=== PATIENT | male | born 1965 | race Caucasian/White ===

== ENCOUNTER 2017-11-11 20:49 | Emergency (ER) | payer OTHER ==
[2017-11-11] MEDS ORDERED: LIDOCAINE 1% MDV 20ML VIAL As Ordered (22:55)
[2017-11-11] MEDS: ADACEL/BOOSTRIX VACCINE (DIPHTH/PERTUSS/ACELL/TETANUS)0.5ML SYR (90715) IM (23:00)
[2017-11-11] MEDS: LIDOCAINE 1% MDV 20ML VIAL IM (23:00)
== END 2017-11-11 23:37 | disposition home or self-care (01) ==
LOC: M ED 20:49
DX: S61.217A Laceration without foreign body of left little finger without damage to nail, initial encounter (principal); W31.89XA Contact with other specified machinery, initial encounter; Y92.099 Unspecified place in other non-institutional residence as the place of occurrence of the external cause; Y93.9 Activity, unspecified; Y99.9 Unspecified external cause status; Z79.899 Other long term (current) drug therapy
CPT/HCPCS: 90715

== ENCOUNTER → 2021-12-28 | Outpatient (REF) | payer OTHER ==
[~2021-12-28] MED LIST: PRAV10TA4 PO
== END ==
LOC: M SFHCDERM 18:44
PROVIDERS: ATTEND Nurse Practitioner Family
DX: D23.71 Other benign neoplasm of skin of right lower limb, including hip (principal)

== ENCOUNTER → 2024-01-06 | Outpatient (CLI) | payer OTHER | LOC: M SLEEP 20:00 | PROVIDERS: ATTEND Internal Medicine | DX: R06.83 Snoring (principal) ==